=== PATIENT | female | born 1965 | race Caucasian/White ===

== ENCOUNTER → 2019-04-06 | Outpatient (CLI) | payer BC ==
--- NOTE | 2019-04-06 12:13 | XR ---
EXAMINATION TYPE: XR foot complete LT DATE OF EXAM: 04/06/2019 COMPARISON: NONE HISTORY: Pain TECHNIQUE: Three views are submitted. FINDINGS: The osseous structures are intact. There is no acute fracture or dislocation. Joint spaces are p reserved. Calcaneal spur noted. Chronic deformity proximal phalanx fifth digit. IMPRESSION: 1. No acute fracture or dislocation. If symptoms persist, follow-up exam in 7 to 10 days could be ob tained.
== END | disposition home or self-care (01) ==
LOC: RADXRYALE 11:00
PROVIDERS: ATTEND Internal Medicine
DX: M79.672 Pain in left foot (principal)

== ENCOUNTER → 2020-06-06 | Outpatient (CLI) | payer BC ==
--- NOTE | 2020-06-06 08:10 | US ---
EXAMINATION TYPE: US thyroid st tissue head/neck DATE OF EXAM: 06/06/2020 COMPARISON: NONE CLINICAL HISTORY: E03.9 Hypothyroidism, unspecified. GLAND SIZE: Right Lobe: 4.3 x 1.1 x 1.4 cm Overall Parenchyma: homogenous Left Lobe: 3.9 x 0.8 x 1.3 cm Overall Parenchyma: homogeneous Isthmus Thickness: 0.2 cm NODULES RIGHT: # of nodules measured on right: 0 LEFT: # of nodules measured on left: 1 1. 0.4 X 0.2 x 0.3 cm, mid, cystic or almost completely cystic, anechoic nodule, which is wider tianna n tall, with smooth margins, without echogenic foci. No prior ISTHMUS: # of nodules measured in the isthmus: 0 Bilateral neck scanned, no evidence of lymphadenopathy. Homogeneous small size thyroid with 2 small cystic nodules in the left thyroid seen on images saved m easuring under 5 mm in size IMPRESSION: As above. No concerning greater than 1 cm solid nodules.
== END ==
LOC: RADUSWWP 06:52
PROVIDERS: ATTEND Family Medicine
DX: E04.1 Nontoxic single thyroid nodule (principal)
CPT/HCPCS: 76536

== ENCOUNTER → 2021-06-10 | Outpatient (CLI) | payer BC ==
--- NOTE | 2021-06-11 09:48 | XR ---
EXAMINATION TYPE: XR shoulder complete RT DATE OF EXAM: 06/10/2021 COMPARISON: NONE HISTORY: Pain TECHNIQUE: Three views are submitted. FINDINGS: The osseous structures are intact. There is no acute fracture or dislocation. Moderate AC joint arth ropathy. IMPRESSION: 1. AC joint arthropathy
== END | disposition home or self-care (01) ==
LOC: RADXRYALE 16:50
PROVIDERS: ATTEND Physician Assistant Medical
DX: M12.811 Other specific arthropathies, not elsewhere classified, right shoulder (principal)

== ENCOUNTER → 2022-04-09 | Outpatient (CLI) | payer BC ==
--- NOTE | 2022-04-09 14:18 | USB ---
Patient History: Menarche at age 13. First Full-Term at age 27. Postmenopausal. Colorectal cancer, age 45. Hormonal Contraceptives, starting at age 37 for 3 years. 2004, Bilateral Implants. Maternal aunt had breast cancer. Risk Values: Nikky 5 year model risk: 1.3%. NCI Lifetime model risk: 9.1%. Technique: Method: Whole Breast Handheld. Prior Study Comparison: 08/28/2010 Bilateral Diagnostic Mammogram, [facility]. 12/21/2012 Bilateral Screening Mammogram, [facility]. 11/28/2015 Bilateral Screening Mammogram, [facility]. Findings: The whole breast of both breasts, the axilla of both breasts and the retroareolar of both breasts were scanned. A complete US of all four quadrants of the both breasts and retro-areolar region were reviewed. No solid or cystic masses are identified. Overall Assessment: Negative, BI-RAD 1 Management: Screening Mammogram of both breasts. A clinical breast exam by your physician is recommended on an annual basis and results should be correlated with mammographic findings. This exam should not preclude additional follow-up of suspicious palpable abnormalities. Results were given to the patient verbally at the time of exam. Electronically signed and approved by: Wesley Brown D.O.
== END | disposition home or self-care (01) ==
LOC: RADUSWWP 13:31
PROVIDERS: ATTEND Obstetrics & Gynecology
DX: N64.4 Mastodynia (principal); Z78.0 Asymptomatic menopausal state; Z80.3 Family history of malignant neoplasm of breast; Z98.82 Breast implant status

== ENCOUNTER → 2024-01-03 | Outpatient (CLI) | payer BC ==
--- NOTE | 2024-01-03 15:05 | USB ---
Reason for Exam: Clinical finding. Patient History: Menarche at age 13. First Full-Term at age 27. Postmenopausal. Colorectal cancer, age 45. Hormonal Contraceptives, starting at age 37 for 3 years. 2004, Bilateral Implants. Maternal aunt had breast cancer. Risk Values: Nikky 5 year model risk: 1.4%. NCI Lifetime model risk: 8.7%. Technique: Method: Whole Breast Handheld. Prior Study Comparison: 08/28/2010 Bilateral Diagnostic Mammogram, [facility]. 12/21/2012 Bilateral Screening Mammogram, [facility]. 11/28/2015 Bilateral Screening Mammogram, [facility]. Findings: The whole breast of both breasts, the axilla of both breasts and the retroareolar of both breasts were scanned. A complete US of all four quadrants of the breast and retro-areolar region were reviewed. No solid or cystic masses are identified.. Overall Assessment: Probably benign, BI-RAD 3 Management: Diagnostic Breast Ultrasound of both breasts in 6 months. A clinical breast exam by your physician is recommended on an annual basis and results should be correlated with mammographic findings. This exam should not preclude additional follow-up of suspicious palpable abnormalities. Results were given to the patient verbally at the time of exam. [facility], , 01/03/2024 3:00 PM. Electronically signed and approved by: Iker Brooks M.D. Radiologis
== END | disposition home or self-care (01) ==
LOC: RADUSWWP 14:12
PROVIDERS: ATTEND Family Medicine
DX: Z98.86 Personal history of breast implant removal